=== PATIENT | female | born 1985 ===

== ENCOUNTER 2017-10-20 14:45 | Inpatient (IN) | payer OTHER ==
[~2017-10-20] VITALS: Ht 157.5 cm; Wt 68.0 kg
[2017-11-12] MEDS ORDERED: PRENATAL TABLE1 EAC1 PO (09:27)
== END 2017-11-14 11:29 | disposition home or self-care (01) | DRG 775 ==
LOC: LDR 11-12 07:41 → OB/GYN 11-12 19:53
PROC: 10E0XZZ Delivery of Products of Conception, External Approach (ICD-10-PCS; principal; 2017-11-12)
PROC: 0UQGXZZ Repair Vagina, External Approach (ICD-10-PCS; 2017-11-12)
PROC: 4A1HXCZ Monitoring of Products of Conception, Cardiac Rate, External Approach (ICD-10-PCS; 2017-11-12)
DX: O71.4 Obstetric high vaginal laceration alone (principal); O99.824 Streptococcus B carrier state complicating childbirth; Z3A.39 39 weeks gestation of pregnancy; Z37.0 Single live birth

== ENCOUNTER 2017-11-03 10:21 | Outpatient (CLI) | payer OTHER | END 2017-11-03 11:11 | disposition home or self-care (01) | LOC: NST 10:21 | DX: Z34.83 Encounter for supervision of other normal pregnancy, third trimester (principal) ==